=== PATIENT | female | born 1995 | race Caucasian/White ===

== ENCOUNTER 2017-02-23 16:15 | Emergency (ER) | payer OTHER ==
[~2017-02-23] VITALS: Ht 160 cm; Wt 73.0 kg
[~2017-02-23 16:15] MED LIST: LEVO50TA8 PO
[2017-02-23] MEDS ORDERED: IBUPROFEN 600MG TABLET PO ONE (20:45)
[2017-02-23 22:17] VITALS: BP 113/63
== END 2017-02-23 23:16 | disposition home or self-care (01) ==
LOC: ER 20:28
DX: R06.02 Shortness of breath (principal); Z79.899 Other long term (current) drug therapy; Z90.89 Acquired absence of other organs
CPT/HCPCS: 70360; 71010; 81025; 99284

== ENCOUNTER 2018-02-19 12:55 | Emergency (ER) | payer OTHER ==
[~2018-02-19] VITALS: Ht 162.6 cm; Wt 78.0 kg
[2018-02-19] MEDS ORDERED: IBUPROFEN 800MG TABLET PO ONE (13:15)
[2018-02-19 14:56] VITALS: BP 122/80
== END 2018-02-19 15:55 | disposition home or self-care (01) ==
LOC: ER 15:08
DX: S10.93XA Contusion of unspecified part of neck, initial encounter (principal); S20.229A Contusion of unspecified back wall of thorax, initial encounter; R10.31 Right lower quadrant pain; E03.9 Hypothyroidism, unspecified; V43.52XA Car driver injured in collision with other type car in traffic accident, initial encounter; Y93.89 Activity, other specified; Y99.8 Other external cause status; Y92.410 Unspecified street and highway as the place of occurrence of the external cause; Z87.440 Personal history of urinary (tract) infections; Z90.89 Acquired absence of other organs
CPT/HCPCS: 81025; 99282

== ENCOUNTER 2018-03-05 15:48 | Emergency (ER) | payer OTHER ==
[~2018-03-05] VITALS: Ht 160 cm; Wt 77.0 kg
[2018-03-05 17:17] LABS: CLARITY URINE CLEAR (CLEAR); COLOR URINE YELLOW (YELLOW); KETONES URINE NEGATIVE (NEGATIVE); LEUKOCYTE ESTERASE URINE NEGATIVE (NEGATIVE); NITRITE URINE NEGATIVE (NEGATIVE); OCCULT BLOOD URINE 1+ (NEGATIVE); PROTEIN URINE NEGATIVE (NEGATIVE); SPECIFIC GRAVITY URINE 1.019 (1.005-1.030); UROBILINOGEN URINE 0.2 E.U./dL (0.2-1.0)
[2018-03-05 17:21] LABS: BASOPHILS % 0.9 % (0.0-2.0); CHLORIDE 105 mEq/L (98-107); EOSINOPHILS % 2.3 % (0.0-5.0); HEMOGLOBIN. 14.9 g/dL (12.0-16.0); LYMPHOCYTES % 40.2 % (20.0-50.0); MEAN CORPUSCULAR VOLUME 89.5 fL (81.0-99.0); MEAN PLATELET VOLUME 8.6 fl (7.4-10.4); MONOCYTES % 10.4 % (2.0-8.0); NEUTROPHILS % 46.2 % (40.0-76.0); PLATELET 242 x1000/uL (130-400); RED BLOOD CELL COUNT 4.81 mill/uL (4.2-5.4); RED CELL DISTRIBUTION WIDTH 12.9 % (11.6-14.6)
[2018-03-05 17:23] LABS: PROTHROMBIN TIME 10.3 sec (9.4-11.6)
[2018-03-05 17:35] LABS: HCG SCREEN NEGATIVE
[2018-03-05] MEDS ORDERED: ACETAMINOPHEN 325MG TABLET PO ONE (18:15)
[2018-03-05] MEDS ORDERED: IBUPROFEN 800MG TABLET PO ONE (19:00)
[2018-03-05 19:35] VITALS: BP 121/69
== END 2018-03-05 20:07 | disposition home or self-care (01) ==
LOC: ER 15:48
DX: N39.0 Urinary tract infection, site not specified (principal); N83.209 Unspecified ovarian cyst, unspecified side; E03.9 Hypothyroidism, unspecified; Z90.89 Acquired absence of other organs
CPT/HCPCS: 36415; 76830; 76856; 80053; 81003; 83690; 84703; 85025; 85610; 99285; Z7610

== ENCOUNTER 2018-04-22 19:57 | Emergency (ER) | payer SELFPAY ==
[~2018-04-22] VITALS: Ht 160 cm; Wt 80.0 kg
[2018-04-22] MEDS ORDERED: DIPHENHYDRAMINE 25MG CAPSULE PO ONE (23:30)
[2018-04-22 23:53] LABS: BASOPHILS % 0.6 % (0.0-2.0); EOSINOPHILS % 5.8 % (0.0-5.0); HEMATOCRIT. 40.3 % (36.0-48.0); HEMOGLOBIN. 13.9 g/dL (12.0-16.0); LYMPHOCYTES % 41.2 % (20.0-50.0); MEAN CORPUSCULAR HEMOGLOBIN 30.4 pg (28.0-32.0); MEAN CORPUSCULAR VOLUME 88.2 fL (81.0-99.0); MEAN PLATELET VOLUME 8.2 fl (7.4-10.4); MONOCYTES % 9.6 % (2.0-8.0); NEUTROPHILS % 42.8 % (40.0-76.0); PLATELET 232 x1000/uL (130-400); RED BLOOD CELL COUNT 4.57 mill/uL (4.2-5.4); RED CELL DISTRIBUTION WIDTH 12.7 % (11.6-14.6)
[2018-04-23] MEDS ORDERED: PREDNISONE 20MG TABLET PO ONE
[2018-04-23 00:10] LABS: CHLORIDE 106 mEq/L (98-107)
[2018-04-23 00:30] VITALS: BP 100/67
== END 2018-04-23 02:03 | disposition home or self-care (01) ==
LOC: ER 21:06
DX: R21 Rash and other nonspecific skin eruption (principal); M79.89 Other specified soft tissue disorders; E03.9 Hypothyroidism, unspecified
CPT/HCPCS: 36415; 80048; 81025; 85025; 99284; J7512; Q0163

== ENCOUNTER 2018-11-07 13:19 | Emergency (ER) | payer OTHER ==
[~2018-11-07] VITALS: Ht 160 cm; Wt 78.0 kg
[2018-11-07] MEDS ORDERED: IBUPROFEN 600MG TABLET PO STA (18:17)
[2018-11-07 19:48] LABS: BASOPHILS % 0.7 % (0.0-2.0); EOSINOPHILS % 2.3 % (0.0-5.0); HEMATOCRIT. 40.9 % (36.0-48.0); HEMOGLOBIN. 13.9 g/dL (12.0-16.0); LYMPHOCYTES % 48.4 % (20.0-50.0); MEAN CORPUSCULAR HEMOGLOBIN 30.5 pg (28.0-32.0); MEAN CORPUSCULAR VOLUME 89.9 fL (81.0-99.0); MEAN PLATELET VOLUME 8.7 fl (7.4-10.4); MONOCYTES % 7.5 % (2.0-8.0); NEUTROPHILS % 41.1 % (40.0-76.0); PLATELET 247 x1000/uL (130-400); RED BLOOD CELL COUNT 4.55 mill/uL (4.2-5.4); RED CELL DISTRIBUTION WIDTH 13.3 % (11.6-14.6)
[2018-11-07 19:52] LABS: CHLORIDE 107 mEq/L (98-107)
[2018-11-07 20:33] LABS: HCG SCREEN NEGATIVE
[2018-11-07 20:59] VITALS: BP 130/60
== END 2018-11-07 21:04 | disposition home or self-care (01) ==
LOC: ER 13:19
DX: N93.8 Other specified abnormal uterine and vaginal bleeding (principal); E03.9 Hypothyroidism, unspecified; Z98.890 Other specified postprocedural states
CPT/HCPCS: 36415; 84703; 99283

== ENCOUNTER 2024-10-06 16:23 | Emergency (ER) | payer OTHER ==
[~2024-10-06] VITALS: Ht 160 cm; Wt 91.0 kg
[2024-10-06 16:46] VITALS: O2SAT 100
[2024-10-06 20:22] VITALS: BP 130/78; PULSE 67; RESP 16; TEMP 36.66960; O2SAT 100
== END 2024-10-06 20:25 | disposition home or self-care (01) ==
LOC: ER 16:23
DX: S93.602A Unspecified sprain of left foot, initial encounter (principal); E03.9 Hypothyroidism, unspecified; Z90.89 Acquired absence of other organs; X58.XXXA Exposure to other specified factors, initial encounter; Y93.89 Activity, other specified; Y92.89 Other specified places as the place of occurrence of the external cause; Y99.8 Other external cause status
CPT/HCPCS: 73610; 73630; 99284